=== PATIENT | female | born 2005 | race Caucasian/White ===

== ENCOUNTER 2024-09-11 09:15 | Emergency (ER) | payer OTHER ==
[~2024-09-11] VITALS: Ht 165.1 cm; Wt 79.5 kg
[2024-09-11 09:20] VITALS: BP 124/89; TEMP 36.7; O2SAT 99
[2024-09-11 09:24] VITALS: PULSE 82; RESP 20; O2SAT 98
[2024-09-11] MEDS ORDERED: MAGNESIUM/ALUMINUM HYDROXIDE/SIMETHICONE 30ML UDC PO ONE (09:45)
[2024-09-11] MEDS ORDERED: ONDANSETRON 4MG ODT PO ONE (09:45)
[2024-09-11] MEDS ORDERED: KETOROLAC 30MG/ML VIAL IM ONE (09:45)
[2024-09-11] MEDS ORDERED: MORPHINE SULFATE 4 MG/ML INJ (FOR IV/IM USE) IM ONE (09:45)
== END 2024-09-11 09:51 | disposition home or self-care (01) ==
LOC: ER 09:15
DX: R10.13 Epigastric pain (principal); R11.2 Nausea with vomiting, unspecified
CPT/HCPCS: 99281

== ENCOUNTER 2025-03-19 19:48 | Emergency (ER) | payer OTHER ==
[~2025-03-19] VITALS: Ht 162.6 cm; Wt 66.0 kg
[2025-03-19 19:55] VITALS: BP 112/74; PULSE 82; RESP 18; TEMP 37.1; O2SAT 97
== END 2025-03-19 20:34 | disposition left against medical advice (07) ==
LOC: ER 19:48
DX: F41.0 Panic disorder [episodic paroxysmal anxiety] (principal); R07.9 Chest pain, unspecified
CPT/HCPCS: 93005; 99281; 99283

== ENCOUNTER 2025-03-25 12:43 | Emergency (ER) | payer OTHER ==
[~2025-03-25] VITALS: Ht 165.1 cm; Wt 73.0 kg
[2025-03-25 12:50] VITALS: O2SAT 98
[2025-03-25] MEDS: HALOPERIDOL LACTATE 5MG/ML VIAL IM ONE (13:18)
[2025-03-25] MEDS: DIPHENHYDRAMINE 50MG/ML VIAL IM ONE (13:18)
[2025-03-25] MEDS: LORAZEPAM 2MG/ML UD SYRINGE ONE (13:18)
[2025-03-25 14:53] LABS: BASOPHILS % 0.7 % (0.0-2.0); EOSINOPHILS % 2.4 % (0.0-5.0); HEMATOCRIT. 34.0 % (36.0-48.0); HEMOGLOBIN. 10.8 g/dL (12.0-16.0); LYMPHOCYTES % 30.7 % (20.0-50.0); MEAN PLATELET VOLUME 10.1 fl (7.4-10.4); MONOCYTES % 11.6 % (2.0-8.0); NEUTROPHILS % 54.6 % (40.0-76.0); PLATELET 168 x1000/uL (130-400); RED BLOOD CELL COUNT 3.84 mill/uL (4.2-5.4); RED CELL DISTRIBUTION WIDTH 13.5 % (11.6-14.6)
[2025-03-25 15:04] LABS: CREATININE 0.7 mg/dL (0.6-1.0); UREA NITROGEN BLOOD 9 mg/dL (9-23)
[2025-03-25 15:06] LABS: HCG SCREEN NEGATIVE
[2025-03-26 05:08] LABS: CLARITY URINE TURBID (CLEAR); COLOR URINE DARK YELLOW (YELLOW); GLUCOSE URINE NEGATIVE (NEGATIVE); KETONES URINE TRACE (NEGATIVE); LEUKOCYTE ESTERASE URINE 2+ (NEGATIVE); NITRITE URINE NEGATIVE (NEGATIVE); OCCULT BLOOD URINE NEGATIVE (NEGATIVE); PH URINE 6.0 (4.5-8.0); PROTEIN URINE 1+ (NEGATIVE); SPECIFIC GRAVITY URINE 1.031 (1.005-1.030); UROBILINOGEN URINE 1.0 E.U./dL (0.2-1.0)
[2025-03-26 05:30] LABS: MUCUS URINE 3+ /lpf (< = 2+); SQUAMOUS EPITHELIAL CELL URINE 2+ /lpf (RARE/1+)
[2025-03-26 05:31] LABS: BACTERIA URINE 2+; RBC URINE 0-2 /hpf (0-2); WBC URINE 25-50 /hpf (0-2)
[2025-03-26 05:32] LABS: *AMPHETAMINES SCREEN URINE NEGATIVE (NEGATIVE); *BARBITURATES SCREEN URINE NEGATIVE (NEGATIVE); *BENZODIAZEPINES SCREEN URINE NEGATIVE (NEGATIVE); *COCAINE SCREEN URINE NEGATIVE (NEGATIVE)
[2025-03-26 05:33] LABS: CANNABINOID URINE SCREEN NEGATIVE (NEGATIVE); ECSTASY MDMA SCREEN URINE NEGATIVE (NEGATIVE); METHADONE URINE SCREEN NEGATIVE (NEGATIVE); OPIATES URINE SCREEN NEGATIVE (NEGATIVE); PHENCYCLIDINE URINE SCREEN NEGATIVE (NEGATIVE)
[2025-03-26] MEDS: NITROFURANTOIN 100MG M/M CAPSULE PO ONE (09:24)
[2025-03-26] MEDS: SERTRALINE HCL 25MG TABLET PO SCH (10:31)
[2025-03-26] MEDS: HYDROXYZINE 25MG TABLET PO PRN (10:31)
[2025-03-26 10:46] VITALS: BP 125/62; PULSE 86; RESP 16; TEMP 36.9; O2SAT 100
== END 2025-03-26 10:55 | disposition short-term general hospital (02) ==
LOC: ER 12:43
DX: R45.851 Suicidal ideations (principal); F41.9 Anxiety disorder, unspecified; Z20.822 Contact with and (suspected) exposure to COVID-19; Z79.899 Other long term (current) drug therapy
CPT/HCPCS: 80048; 80307; 80329; 80320; 84703; 85025; 36415; 96372; 99285; 87426; 80305; 81003; 87086; J1200; J1630; J2060; G0480